=== PATIENT | female | born 1985 | race Asian ===

== ENCOUNTER 2019-02-24 13:02 | Emergency (ER) | payer MEDICAID ==
[~2019-02-24] VITALS: Ht 165.1 cm; Wt 62.6 kg
[2019-02-24 13:07] VITALS: BP_SYST 110
[2019-02-24] MEDS ORDERED: KETOROLAC TROMETHAMINE 60 MG/2 ML VIAL IM ONE (13:30)
[2019-02-24] MEDS ORDERED: BACITRACIN 1 GM OINT TP ONE (13:30)
[2019-02-24] MEDS ORDERED: DIPH-TET-PERTUS Vaccine 0.5 ML VIAL (ADACEL) I.M. ONE (13:30)
[2019-02-24 14:56] VITALS: BP_SYST 119
== END 2019-02-24 14:57 | disposition home or self-care (01) ==
LOC: SED 13:02
DX: S02.2XXA Fracture of nasal bones, initial encounter for closed fracture (principal); S63.501A Unspecified sprain of right wrist, initial encounter; S63.502A Unspecified sprain of left wrist, initial encounter; R03.0 Elevated blood-pressure reading, without diagnosis of hypertension; Z88.5 Allergy status to narcotic agent; Z85.71 Personal history of Hodgkin lymphoma; V53.5XXA Driver of pick-up truck or van injured in collision with car, pick-up truck or van in traffic accident, initial encounter; Y93.89 Activity, other specified; Y92.410 Unspecified street and highway as the place of occurrence of the external cause; Y99.8 Other external cause status
CPT/HCPCS: 70160; 73110; 81025; 90471; 90715; 96372; 99283; J1885